=== PATIENT | female | born 1995 | race Caucasian/White ===

== ENCOUNTER 2019-04-20 07:32 | Emergency (ER) | payer BC ==
[~2019-04-20] VITALS: Ht 170.2 cm; Wt 65.9 kg
[~2019-04-20 07:32] MED LIST: MIRENA52 MG IY
[2019-04-20 07:49] VITALS: BP 121/76; TEMP 99
[2019-04-20] MEDS ORDERED: NAPROSYN500 MG PO (08:34)
[2019-04-20 08:58] VITALS: PULSE 76
== END 2019-04-20 08:58 | disposition home or self-care (01) ==
LOC: COL.ER 07:32
DX: M25.562 Pain in left knee (principal); J45.909 Unspecified asthma, uncomplicated